=== PATIENT | male | born 1940 | race Caucasian/White ===

== ENCOUNTER → 2025-02-21 13:15 | Outpatient (REF) | payer OTHER, SELFPAY | LOC: RAD 13:15 | PROVIDERS: ATTENDING PHYSICIAN Internal Medicine Interventional Cardiology; FAMILY PHYSICIAN Family Medicine | DX: I48.21 Permanent atrial fibrillation (principal) | CPT/HCPCS: 75572; Q9967 ==

== ENCOUNTER 2025-03-21 07:15 | Inpatient (IN) | payer OTHER, SELFPAY ==
[2025-03-15 09:37] VITALS: BMI 35.2
[2025-03-15 10:17] LABS: Hematocrit 48.4 % (39.0-52.0); Hemoglobin 15.8 g/dL (13.0-18.0); Mean Corp Hgb Conc. 32.6 g/dL (33.0-37.0); Mean Corpuscular Volume 85.8 fL (80.0-94.0); Nucleated Red Blood Cells % 0 % (-); Platelet Count 196 10^3/uL (130-400); Red Cell Dist. Width 15.1 % (11.5-14.5)
[2025-03-15 10:29] LABS: INR 1.56; PT 19.2 Sec (11.4-14.6)
[2025-03-15 10:33] LABS: ALT (SGPT) 24 U/L (0-50); AST (SGOT) 29 U/L (17-59); Albumin 3.9 g/dl (3.5-5.0); Alkaline Phosphatase 73 U/L (38-126); Blood Urea Nitrogen 14 mg/dl (9-20); Calcium 9.3 mg/dl (8.4-10.2); Carbon Dioxide 35 mmol/L (22-30); Chloride 99 mmol/L (98-107); Estimated Creatinine Clearance 81 ml/min; Glucose 94 mg/dl (70-99); Potassium 4.7 mmol/L (3.5-5.1); Sodium 139 mmol/L (135-145); Total Protein 7.3 g/dl (6.3-8.2); eGFR > 60.00
[2025-03-21] VITALS (17 sets, daily range): BP systolic 104–151; BP diastolic 61–92
[2025-03-21] MEDS: NSS 500 IV (08:20)
[2025-03-21 09:51] LABS: ACT-LR - POC 318 Seconds (116-155)
--- NOTE | 2025-03-21 10:03 | WATCHMAN.MD ---
Watchman Implant
-
Watchman CALVIN occlusion device implantation:
Mr. Harris is an 84 yrs old gentleman with high risk of GI bleeding and advised to stop anticoagulation therapy is here for Watchman implantation.
Date of Procedure:
03/21/25
Indications:
GI bleeding with anticoagulation therapy for stroke prevention
Pre-Operative Diagnosis:
Atrial fibrillation with high risk of bleeding
Post-Operative Diagnosis:
Atrial fibrillation with high risk of bleeding
Procedure Performed:
Left atrial appendage occlusion with Watchman implantation (24 mm Watchman FLX Pro left atrial appendage closure device)
Performing Physicians:
THALIA: Ben Goodman MD.
Transseptal fax machine operator: Mis Roger MD.
Implanter: Anne Abrams MD
Anesthesia:
See anesthesia records
Detailed Description of the Procedure:
Written informed consent was obtained from the patient after a full explanation of the risks and benefits of the procedure including the risks of sedation and anesthesia.
The patient was brought to the electrophysiology laboratory in stable condition in fasting state. Continuous electrocardiographic and hemodynamic monitoring was initiated.
The initial rhythm was atrial fibrillation.
The procedure site was meticulously prepared with surgical scrub and allowed to dry with no pooling. Sterile draping was applied to cover the procedure site. The image intensifier was draped with sterile bag and positioned over the patient. After
infusion of local anesthetic, vascular access was obtained under ultrasound guidance and sheaths were placed over guide wire as detailed below.
Sheath and Catheter Placement:
In the right femoral vein, an 8-Spanish sheath was placed for Watchman placement procedure.
Sheaths:
16 Fr sheath with Watchman delivery sheath upgraded from 8Fr sheath.
Catheters:
Watchman catheter
Trans-septal Puncture:
Heparin was initiated and infused to maintain appropriate ACT.
There was convoluted IVC course and needed gradual dilatations to be able to pass 16Fr sheath to the right atrium. A VersaCross RF pigtail guidewire was advanced through the 8-Spanish sheath in the right femoral vein into the superior vena cava under
fluoroscopic, THALIA guidance. The 8Fr was upgraded the Watchman sheath and was advanced into the superior vena cava over the guide wire. A transseptal VersaCross RF pigtail via Faradrive connect system was utilized to perform the trans-septal
puncture. The apparatus was withdrawn until it was in contact with the fossa ovalis. The position was adjusted based on fluoroscopy and ultrasound images from THALIA. Under fluoroscopic, hemodynamic and THALIA ultrasound guidance, left atrium was
cannulated by applying the radiofrequency energy. The right atrial and left atrial pressure was monitored. A guide wire was placed and was advanced into the left superior pulmonary vein. Both the sheath and the dilator was advanced into the left
atrium. The dilator was withdrawn. Blood was aspirated from the sheath and arterial blood confirmed. The sheath was flushed. Saline injection noted into the left atrium on THALIA. The LA pressure was recorded. The saline injection was noted in the LA
on the THALIA. A curved pig tail was advanced over the guide wire into the left atrium and the wire was removed.
Left atrial appendage atriography:
The pigtail was advanced into the CALVIN and was confirmed on fluoroscopy and THALIA. The contrast was injected and the CALVIN shape was recorded in SON /Caudal view (20/20 degrees). The size of the CALVIN was again checked and confirmed reviewing the THALIA and
the fluoroscopy along with previously obtained CT scan images.
Watchman Deployment:
The Watchman delivery sheath was advanced into the CALVIN over the pigtail till the right marker was at the location of the orifice line marked on the screen. The pigtail was removed and the Watchman delivery system was advanced through the sheath into
the CALVIN till it was aligned with the outer sheath marker inside the CALVIN. The watchman sheath was clicked with the outer sheath. Once acceptable location achieved, the outer sheath was pulled back keeping the device steady at the CALVIN location till a
ball of the device was formed under fluoroscopic guidance. The whole system was advanced further into the CALVIN till adequate depth is achieved into the CALVIN. The CALVIN occluder was deployed and expanded adequately anchoring to the CALVIN. The device was
kept anchored with stable pressure to that location for 10 seconds.
The watchman needed to be recaptured and adjusted and was redeployed till the adequate expansion and occlusion of the CALVIN noted.
The THALIA image confirmed adequate expansion. The tug test was done that showed the device is anchored well and is not able to come out. The compression was 15% and 24% on the three sides. There was no significant leak noted on the Doppler via THALIA.
The device was deployed by unscrewing the Watchman device and releasing from the connecting wire. The wire was pulled back into the sheath and the sheath was pulled out of the LA.
Implanted device:
WATCHMAN FLX Pro � 24mm
Procedure End
THALIA study was done again that showed no epicardial accumulation that was unchanged from earlier. A repeated images showed no change in the pericardial space. No complications noted.
Following the completion of the deployment, catheters were removed. Protamine 40 mg was given at the end of the procedure and ACT was checked repeatedly. The sheath was removed and hemostasis achieved with 'Fig of 8 suture' and manual compression
after acceptable ACT is achieved.
Left atrial Pressure:
Mean LA pressure was 14mmHg
Estimated Blood loss:
10 cc
Specimens Removed:
None.
Implants / Devices:
None
Urine output:
None
Packs / Drains/ Tubes:
None
Instrument / Sponge Count Correct:
Yes
Complications of the Procedure:
None
Condition of Patient at Time of Transfer:
Hemodynamically stable with no neurological or vascular compromise.
Summary:
Successful implantation of the left atrial occlusion device (WATCHMAN FLX Pro� 24mm)
Post procedure Plan for anticoagulation:
Continue Eliquis 5 mg BID for 3 months.
Based on THALIA, will plan to discontinue Eliquis and start ASA 81 mg indefinitely.
--- NOTE | 2025-03-21 10:36 | WATCHMAN.MD ---
Watchman Implant
-
ELECTROPHYSIOLOGY/INTERVENTIONAL PROCEDURE REPORT
Date of Procedure: March 21, 2025
Referring: Dr. Enrique Branch
Assisting Physician: Mis Roger MD
PROCEDURES:
1. Left atrial appendage occlusion device using 24 mm WATCHMAN FLX device
2. Ultrasound-guided right common femoral venous access
INDICATION: High [id number] warranting group home full anticoagulation but inability to do this given his bleeding risk/bleeding complication.
ACCESS: Right common femoral vein, 16Fr sheath sheaths under US guidance using micropunture kit.
Ultrasound was utilized for vascular access. The right femoral vein was visualized under ultrasound, and the vessels was patent. An image was stored permanently in the patient's medical record. Under direct ultrasound guidance, an 8 [place]
sheaths was inserted into the right common femoral vein, using a micropuncture kit through a modified Seldinger technique.
HEMODYNAMICS : (mmHg)
LA Pressure: 14
PROCEDURE REPORT:
After informed consent and patient safety 'Timeout' the patient was intubated and sedated by the anesthesiology service. Under ultrasound guidance, the right femoral vein was accessed by Dr. Mis Roger for transseptal puncture and intracardiac
ultrasound, respectively. Concomitant transesophageal echocardiogram was performed by Dr. Ben Goodman
Baseline THALIA images revealed a small pericardial effusion.
After ruling out a left atrial appendage thrombus, the patient was heparinized for an ACT between 350-400 seconds and under THALIA and intracardiac ultrasound guidance transseptal puncture was performed by Dr. Colleen Abrams using the [place] VersaCross
trans-septal system in a mid position on the inferior-superior axis and a mid position on the anterior-posterior axis. Left atrial pressure was 14 millimeters mercury.
Once transseptal puncture was performed over the [place] Versacross pigtail 0.035 wire, which was parked in the body of left atrial appendage, the watchman access double curve sheath was advanced over this into the left atrium. A 5 [place] pigtail
catheter was placed into the left atrial appendage and an appendage gram was performed using intravenous contrast dye demonstrating anatomy that was suitable likely for a 24 mm WATCHMAN FLX device.
After appropriately prepping the device, Dr. Colleen Abrams successfully deployed a 24 mm WATCHMAN FLX device. Device showed excellent positioning with no leaks post device deployment. 15 to 23 % compression was noted in the device after deployment.
A 'tug-test' was performed demonstrating stability of the device. Given PASS criteria were met, the device was then released successfully by Dr. Colleen Abrams.
Post procedure, THALIA imaging demonstrated no new or worse pericardial effusion. Sheaths and catheters were removed from the left atrium and heparin was reversed using protamine. Catheters removed from the femoral vein with [id number] suture
applied. The patient tolerated the procedure well.
Closure Device: Figure of 8 suture
CONCLUSIONS
1. Successful deployment of 24 mm WATCHMAN FLX device under THALIA and ICE guidance.
RECOMMENDATIONS
1. Plan for daily Eliquis 5 mg twice daily along with daily baby aspirin 81 mg for the next 3 months.
2. 3-month THALIA post procedure to assess stability of device and rule out any demetrius-device leaks. If no issues noted on the 3-month THALIA post watchman placement such as a greater than 5 mm leak, plan would be to stop anticoagulation at that point and
continue daily baby aspirin lifelong.
3. Figure of 8 suture removal prior to discharge.
Copy to: Enrique Branch MD and Maldonado Mike MD
Colleen Abrams MD, [facility], [facility]
[2025-03-21] MEDS: LASIX 40 MG IV (11:05)
[2025-03-21] MEDS: TOPROL XL 100 MG PO (12:00)
--- NOTE | 2025-03-21 15:12 | PTCARENOTE ---
Received patient after watchman procedure via right femoral vein. Figure of 8 removed in PACU, dressing is dry and intact with palpable pulses. Oriented to the room and plan of care, call hsu in reach.
[2025-03-21] MEDS: LIPITOR 20 MG PO (17:48)
[2025-03-21] MEDS: ELIQUIS 5 MG PO (20:48)
[2025-03-21] MEDS: NSS IV (21:01)
--- NOTE | 2025-03-21 21:37 | PTCARENOTE ---
Received pt OOB in the chair. Denies pain or discomfort. Controlled Afib, VSS. Right groin dressing- CDI , weak positive pulses
[2025-03-22 03:05] VITALS: BP 107/65
[2025-03-22 03:34] LABS: Hematocrit 46.5 % (39.0-52.0); Hemoglobin 15.0 g/dL (13.0-18.0); Mean Corp Hgb Conc. 32.3 g/dL (33.0-37.0); Mean Corpuscular Volume 86.6 fL (80.0-94.0); Platelet Count 182 10^3/uL (130-400); Red Cell Dist. Width 15.1 % (11.5-14.5)
[2025-03-22 03:57] LABS: Blood Urea Nitrogen 17 mg/dl (9-20); Calcium 9.4 mg/dl (8.4-10.2); Carbon Dioxide 29 mmol/L (22-30); Chloride 100 mmol/L (98-107); Estimated Creatinine Clearance 81 ml/min; Glucose 122 mg/dl (70-99); Potassium 4.6 mmol/L (3.5-5.1); Sodium 135 mmol/L (135-145); eGFR > 60.00
[2025-03-22 06:00] VITALS: BMI 34.1
[2025-03-22 07:48] VITALS: BP 108/53
[2025-03-22] MEDS: NSS IV (07:48)
[2025-03-22] MEDS: ASPIR LOW (ENTERIC COATED) 81 MG PO (07:48)
[2025-03-22] MEDS: LASIX 40 MG PO (07:48)
[2025-03-22] MEDS: ELIQUIS 5 MG PO (07:48)
[2025-03-22] MEDS: TOPROL XL 100 MG PO (07:49)
[2025-03-22] MEDS: LANOXIN 125 MCG PO (07:49)
[2025-03-22] MEDS: FLUSH (NSS) 1 FLUSH IV (07:50)
--- NOTE | 2025-03-22 09:24 | PTCARENOTE ---
Patient sitting oob in the chair this morning, telemetry alarming with lower HR at times after his morning meds with HR in the upper 30's, asymptomatic. Right groin dressing is dry and intact, call hsu in reach.
--- NOTE | 2025-03-22 10:04 | W.PN.CARDCBS ---
Addendum entered and electronically signed by Colleen Abrams MD 03/22/25 16:13:
I saw and examined the patient.
The Visitor Services Coordinator's note was reviewed and I agree with the note.
Comment: Overall patient is doing well does not offer any significant complaints. No issues at the right groin access site. Patient is ambulated without any difficulty.
No signs of labwork reviewed. Patient is out of bed in a chair with at bedside, no acute distress, awake, alert and oriented x 3, normal S1 and S2, no murmurs, rubs or gallops, lungs are clear to auscultation bilaterally, no JVD, abdomen is
soft, nontender, nondistended with active bowel sounds, warm extremities without significant edema. Right groin access site with no evidence of hematoma or bruit.
Recommendations:
1. Patient was resumed on his home Eliquis and daily baby aspirin with plan to continue this for the next 3 months.
2. Outpatient THALIA will be set up post watchman in 3 months. If no significant leaks are found plan to discontinue Eliquis at this point and continue daily baby aspirin indefinitely.
Stable for discharge from a cardiac standpoint. Discussed with outpatient tafe lecturer.
Colleen Abrams MD, [facility], [facility]
Original Note:
Today's Communication / Plan
-
psot watchman, f/u THALIA in 3 mo
stable for d/c home
Impression / Plan
-
PCP: Maldonado Mike MD
CDY: Enrique Branch MD
Impression:
Permanent Atrial fibrillation
post 24mm Watchman device implant 03/21/25
Chronic HFpEF
Hypertension.
Hyperlipidemia.
Peripheral arterial disease, bilateral lower extremity bypass.
Chronic stasis dermatitis.
Recurrent septic shock.
Remote tobacco abuse/COPD.
Dysphagia/Schatzki's ring with hiatal hernia and GERD.
Obstructive sleep apnea, CPAP compliant.
Ambulatory dysfunction.
Osteoarthritis.
Degenerative disc disease with spinal stenosis.
Plan:
post watchman feels good
groin stable
tele Afib
OAC Eliquis
f/u THALIA in 3 mo
continue ASA, atorvastatin for PAD
Activity restrictions reviewed
f/u DCA as scheduled
home today
Progress Note - Wood And Hardware Outfitter
Subjective
Date of Service: March 22, 2025
denies cp, sob
Objective
Labs:
03/22/25 03:15
03/22/25 03:15
Labs
Hgb 15.0 g/dL (13.0-18.0) 03/22/25 03:15
Hct 46.5 % (39.0-52.0) 03/22/25 03:15
Plt Count 182 10^3/uL (130-400) 03/22/25 03:15
PT 19.2 Sec (11.4-14.6) H 03/15/25 09:30
INR 1.56 03/15/25 09:30
Sodium 135 mmol/L (135-145) 03/22/25 03:15
Potassium 4.6 mmol/L (3.5-5.1) 03/22/25 03:15
BUN 17 mg/dl (9-20) 03/22/25 03:15
Creatinine 0.8 mg/dL (0.7-1.3) 03/22/25 03:15
Glucose 122 mg/dl (70-99) H 03/22/25 03:15
Vital Signs and I&O:
Vital Signs
Temp Pulse Resp BP Pulse Ox
97.5 F 57 18 108/53 98
03/22/25 07:55 03/22/25 08:45 03/22/25 08:26 03/22/25 07:48 03/22/25 08:26
Vital Signs
Temp Pulse Resp BP Pulse Ox
97.5 F 57 18 108/53 98
03/22/25 07:55 03/22/25 08:45 03/22/25 08:26 03/22/25 07:48 03/22/25 08:26
Intake & Output
03/20/25 03/21/25 03/22/25 03/23/25
06:59 06:59 06:59 06:59
Intake Total 1280 / 1280
Output Total 2200 / 2200
Balance -920 / -920
Physical Exam
Physical Exam
NAD, AOX3
S1, S2, irreg irreg
CTAB, non labored, no wheeze
SNTND bsx4
R fem site c/d/i no HT< soft
--- NOTE | 2025-03-22 11:02 | PTCARENOTE ---
Remains in AF, HR at times in the upper 30's. Patient ambulated in the butts down to the exit area and back to the visitor's lounge. No dizziness or lightheadedness noted, gait steady, HR in the 70's with ambulation. TT to Irvin Walter NP to notify her
about HR. Sitting oob in the chair, here for discharge, waiting to be seen by cardiology.
[2025-03-22 11:57] VITALS: BP 102/53
--- NOTE | 2025-03-22 12:00 | CM ---
Chart reviewed. Patient is independent of ADLS, lives with his in a [address], 8 KAREN, 0 DME. Plan is for the patient to return home.
--- NOTE | 2025-03-22 12:56 | W.DS.TRANS ---
DC Summary - Superintendent Drivers
-
Discharge Instructions:
Discharge Diagnosis/Procedures Watchman device implant
Diet Low Cholesterol
Driving Restrictions No driving for 24 hours
Others Tests Follow up THALIA is scheduled at [facility] on 06/23/[address] Mohamud
. Pre-admission testing is scheduled for
2025 at 11:20am on the ground floor of the
[facility] at
[facility].
Instructions:
Stand-Alone Forms: DC Instructions- Cath/EP Lab
Changes to Home Medications: No
Discharge Medications:
DC Medications w/original date entered in [employer]
Vitamin B-1 1 tab PO DAILY 03/13/25
apixaban 5 mg tablet (Eliquis) 5 mg PO BID 03/13/25
aspirin 81 mg tablet,delayed release 81 mg PO DAILY 03/13/25
atorvastatin 20 mg tablet 20 mg PO QPM 03/13/25
digoxin 125 mcg (0.125 mg) tablet 125 mcg PO DAILY 03/13/25
folic acid 400 mcg tablet 0.4 mg PO DAILY 03/13/25
furosemide 40 mg tablet 40 mg PO DAILY 03/13/25
lutein 20 mg tablet 20 mg PO HS 03/13/25
metoprolol succinate 100 mg tablet,extended release 24 hr 100 mg PO DAILY 03/13/25
nhgxymdg-xfq-ejdbz3 250 mg-dha 90 mg-epa 160 oo-leey-pfzb-zeax capsule (Ocuvite Adult 50 Plus) 1 cap PO DAILY 03/13/25
gpituvfq-bgtwilrm-lnhvo acid 400 mcg-vit K 20 mcg-lycop 300 mcg tablet (One-A-Day Men's Multivitamin) 1 tab PO DAILY 03/13/25
Home Medication Changes
Pending Results: No
--- NOTE | 2025-03-22 12:59 | PTCARENOTE ---
Reviewed discharge instructions with the patient and his and they state their understanding. Patient's had a different date for PAT, clarified that it is scheduled for 06/09. Patient discharged home with his .
== END 2025-03-22 13:05 | disposition home or self-care (01) | DRG 274 ==
LOC: IVU 07:15
PROVIDERS: Internal Medicine Cardiovascular Disease; Nurse Practitioner; ADMITTING PHYSICIAN Internal Medicine Interventional Cardiology; FAMILY PHYSICIAN Family Medicine
PROC: 02L73DK Occlusion of Left Atrial Appendage with Intraluminal Device, Percutaneous Approach (ICD-10-PCS; 2025-03-21)
PROC: B24BZZ4 Ultrasonography of Heart with Aorta, Transesophageal (ICD-10-PCS; 2025-03-21)
DX: I48.21 Permanent atrial fibrillation (principal); Z00.6 Encounter for examination for normal comparison and control in clinical research program; I50.32 Chronic diastolic (congestive) heart failure; I31.39 Other pericardial effusion (noninflammatory); I11.0 Hypertensive heart disease with heart failure; E78.5 Hyperlipidemia, unspecified; I73.9 Peripheral vascular disease, unspecified; I87.2 Venous insufficiency (chronic) (peripheral); J44.9 Chronic obstructive pulmonary disease, unspecified; Z87.891 Personal history of nicotine dependence; K21.9 Gastro-esophageal reflux disease without esophagitis; G47.33 Obstructive sleep apnea (adult) (pediatric); M48.00 Spinal stenosis, site unspecified; I25.2 Old myocardial infarction; H35.30 Unspecified macular degeneration; Z79.01 Long term (current) use of anticoagulants; I34.0 Nonrheumatic mitral (valve) insufficiency
CPT/HCPCS: 33340; 36415; 80048; 80053; 85025; 85027; 85347; 85610; 86850; 86900; 86901; 87070; 93005; 93355; C1769; C1894; Q9967